=== PATIENT | female | born 1960 | race Caucasian/White ===

== ENCOUNTER → 2017-03-29 | Outpatient (CLI) | payer BC ==
[~2017-03-29] MED LIST: FLAGYL500 MG PO; HYDROCODON-ACE1 EAC5 PO; LEVAQUIN 500 M500 M2 PO; LORTAB 10-3251 EACH PO; ONDANSETRON HCL4 M2 PO; WELLBUTRIN XL150 MG PO
[2017-03-29 08:04] LABS: BASOPHILS 0.4 % (0.0-2.0); EOSINOPHILS 1.3 % (0.0-3.0); HEMATOCRIT 44.4 % (37.0-47.0); HEMOGLOBIN 15.3 gm/dL (12.0-15.0); LYMPHOCYTES 26.7 % (24.0-44.0); MCHC 34.5 g/dL (28.0-37.0); MCV 89.7 fL (80.0-100.0); MONOCYTES 5.3 % (1.0-8.0); PLATELET COUNT 239 thou/uL (150-400); POLYS 66.3 % (36.0-66.0); RBC 4.95 mil/uL (4.20-5.00); RDW 14.1 % (10.5-14.5); WBC 10.6 thou/uL (4.0-11.0)
[2017-03-29 08:07] LABS: MANUAL DIFF NO
[2017-03-29 08:10] LABS: CALCIUM 9.3 mg/dL (8.5-10.1); CREATININE 0.6 mg/dL (0.6-1.0); POTASSIUM 4.1 mmol/L (3.5-5.1)
== END ==
LOC: CAT 06:46
PROVIDERS: Surgery
DX: Z09 Encounter for follow-up examination after completed treatment for conditions other than malignant neoplasm (principal); K57.30 Diverticulosis of large intestine without perforation or abscess without bleeding

== ENCOUNTER 2017-05-18 05:41 | Inpatient (IN) | payer BC ==
[~2017-05-18] VITALS: Ht 157.5 cm; Wt 66.7 kg
--- NOTE | ~2017-05-18 | O ---
[facility] [place] [address] OPERATIVE REPORT Name: CAPRI ROUSSEAU Room #: 416-P [facility] M.R.#: [id number] Admission: 05/18/17 Attend Phys: Ronny Gaytan MD, F Discharge: Date of : 62 Report #: [id number] THIS REPORT FOR: //name// CC: Lewis Joneson Ronny Gaytan DATE OF SERVICE: 05/18/2017 SURGEON: Ronny Gaytan MD ORNAMENTAL IRONWORKER: Juan Carlos Lowery DO PREOPERATIVE DIAGNOSIS: History of severe acute diverticulitis, status post Celia's procedure. POSTOPERATIVE DIAGNOSES: 1. History of severe acute diverticulitis, status post Celia's procedure. 2. Extensive intra-abdominal adhesions. 3. Incisional ventral hernias (parastomal and recurrent at the midline). PROCEDURES: 1. Laparoscopic converted to open colostomy reversal. 2. Segmental small-bowel resection. 3. Extensive laparoscopic and open lysis of adhesions lasting 173 minutes. 4. Repair of incarcerated incisional ventral hernias times 2. 5. Placement of Prevena topical wound VAC. 6. This is a modifier 22 operation based on the extensive amount of intra-abdominal adhesions present and adhesions in the pelvis, which ultimately required conversion to an open procedure. Passage of the dilator and stapler rectally was quite difficult. ANESTHESIA: General endotracheal anesthesia and local anesthetic. ESTIMATED BLOOD LOSS: 200 mL. SPECIMENS: 1. Sigmoid colon. 2. Segment of distal jejunum. COMPLICATIONS: None appreciated. INDICATIONS FOR PROCEDURE: This is a 56-year-old female patient who underwent a Celia's procedure on 09/01/2016. She required a segmental small-bowel resection as well as repair of an incisional ventral hernia at that time. She was planned to have a laparoscopic sigmoid colectomy and was found to have adhesions and an abscess posterior to the urinary bladder and for this reason [address] [address] OPERATIVE REPORT Name: CAPRI ROUSSEAU Room #: 416-P REG [facility]#: [id number] Admission: 05/18/17 Attend Phys: Ronny Gaytan MD, F Discharge: Date of : 62 Report #: [id number] she required a Celia's procedure. She presents now for laparoscopic colostomy reversal. OPERATIVE FINDINGS: Upon entrance into the abdominal cavity laparoscopically, the patient had significant adhesions. The entire omentum was plastered to the anterior abdominal wall and this required takedown. There were also adhesions from the small-bowel to the anterior abdominal wall as well as interloop adhesions and adhesions from the colon to the anterior abdominal wall. After carefully taking these down, a recurrent incisional ventral hernia was seen at the midline near the umbilicus. In addition to this, a significant parastomal hernia was visualized containing omental fat. There was good length on the segment of colon leading up to the stoma that did not require mobilization of the splenic flexure. When attempting to dilate the rectum, the dilator could not be passed despite multiple attempts and finger dilatation. Decision was made to convert to an open procedure to further take down the pelvic adhesions and straighten the rectum to allow for stapling. A 29-mm EEA stapler was ultimately used for the anastomosis. There was no evidence for anastomotic leak on leak test whereby the anastomosis was submerged and pressure was held proximal to the anastomosis while air was insufflated distally. No bubbles were seen emanating from the anastomosis through the fluid. Due to the significant adhesions from the small-bowel to the pelvis, after taking down these adhesions, there were serosal injuries that were felt to be at risk for fistulization. The loop of bowel involved was distal jejunum. This was resected and the anastomosis was palpably patent. Both anastomoses were without tension. No other significant intraabdominal pathology was identified. At the conclusion of the operation, sponge, needle, and instrument counts were correct. DESCRIPTION OF PROCEDURE IN DETAIL: After the benefits and risks of the procedure were explained to the patient, which include, but are not limited to risks of bleeding, infection, possible conversion to an open procedure, postoperative pain, and postoperative expectations, informed consent was obtained. The patient was identified in the preoperative holding area. She was given IV antibiotics as documented in the chart in line with the SCIP metrics. The patient was then taken to the operating room and she was placed in the supine position. SCDs were placed on the patient's bilateral lower extremities and pneumatic compression was initiated. The patient was then given IV sedation and she was intubated without incident. She was placed in the low lying dorsal lithotomy position in [facility]. The patient's abdomen was prepped and draped in the standard sterile fashion. A time-out was performed to identify the correct patient and procedure. Local anesthetic was then infiltrated into the skin and subcutaneous tissue in the right subcostal area where a small transverse incision was made with a #15 blade scalpel. A 5-mm Visiport was placed with some difficulty and not clearly intraperitoneally. This approach was abandoned and I chose to insufflate the abdomen through a Veress needle. In the left upper quadrant of the abdomen, a [facility] [address] [place] [address] OPERATIVE REPORT Name: CAPRI ROUSSEAU [id number] Admission: 05/18/17 Attend Phys: Ronny Gaytan MD, F Discharge: Date of : 62 Report #: [id number] small incision was made after local anesthetic was infiltrated and a Veress needle was placed with two clicks and a positive drop test. The abdominal cavity was then insufflated with carbon dioxide. The right upper quadrant port was then placed intraperitoneally. An additional 5-mm port was placed in the right lower quadrant through a small transverse incision after local anesthetic was infiltrated into the skin and subcutaneous tissue and an appropriately sized incision was made. This was used to take down adhesions and cleared enough space to place a port in the left upper quadrant of the abdomen. This was placed through the same incision as that was used for placement of Veress needle. The port was placed under direct visualization. Extensive laparoscopic lysis of adhesions was then undertaken to dissect the omentum, small-bowel and colon off of the anterior abdominal wall. After doing so, the stoma was clearly identified. The parastomal hernia was clearly seen as was the recurrent incisional ventral hernia at the midline. Incarcerated omentum was dissected out of both defects. Attention was then turned to the pelvis. Small-bowel adhesions were present in the pelvis that were difficult to dissect free. The patient was placed in the steep Trendelenburg position and adhesiolysis was undertaken. Small-bowel loops remained somewhat adherent and unable to be dissected free out of the pelvis. Dissection was undertaken as much as possible. Further adhesions in the pelvis precluded passage of the dilators transanally. Finger dilatation was undertaken first. Despite this, there appeared to be a stricture and attempts to straighten the rectum laparoscopically were unsuccessful. The sutures on the rectal stump were able to be identified. Decision was made to convert to an open procedure. A sharp #10 blade scalpel was used to make a vertical midline incision through the old incision around the umbilicus on the right. Dissection was carried through the subcutaneous tissue down to the fascia. The fascia was then opened along the length of the incision. The Bookwalter retractor was placed. The small-bowel adhesions within the pelvis were further taken down and the small-bowel was run from the ileocecal valve to ligament of Treitz. All adhesions were carefully taken down with electrocautery and sharp dissection. The rectum was then freed with careful dissection and from below, after multiple attempts, the dilator was able to be passed up to an area that was just distal to the rectal stump staple line. The dilator could not be passed beyond this point. A 29-mm dilator had been used as well. The colostomy was taken down. An elliptical incision was made around the stoma and the tissue was divided with electrocautery to completely free the end descending colostomy. The stoma was stapled off. It had been pursestring suture closed prior to prepping the patient earlier. This was stapled off. An auto-pursestring device was then placed and the excess tissue was trimmed away. The tails of the pursestring suture were then tagged and the colon was triangulated with Allis clamps. The 25 and 28-mm dilator were used to sequentially dilate the descending colon. A medium sized 29-mm EEA stapler was chosen for the anastomosis. The anvil was placed within the lumen and the [address] [address] OPERATIVE REPORT Name: CAPRI ROUSSEAU Room #: 416-P [facility] M.R.#: [id number] Admission: 05/18/17 Attend Phys: Ronny Gaytan MD, F Discharge: Date of : 62 Report #: [id number] pursestring suture was tied while sequentially releasing the Allis clamps. The descending colon reached the pelvis without tension. I did dissect up along the white line of [place]oldt with electrocautery close to the splenic flexure. There appeared to be enough mobilization after doing so to create the anastomosis in a tension-free fashion. The 29-mm stapler was then advanced into the rectum and brought as far proximally as possible. The spike was advanced through the rectal wall. The anvil was connected to the spike and the stapler was tightened and fired ensuring that the mesentery of the descending colon was not twisted. The stapler was then opened and removed. A leak test was then performed with findings as noted above. The bowel was clamped off proximal to the anastomosis and using the rigid proctoscope, air was insufflated into the rectum. No air bubbles were seen emanating through the fluid from the anastomosis. There was a slight serosal injury anteriorly and this was sutured with interrupted 3-0 PDS sutures. The anastomosis itself did not require reinforcement. A 10 mL of Tisseel was applied around the anastomosis to further prevent leakage. The small-bowel resection was undertaken next. The bowel was run once again and carefully inspected. The segment of distal jejunum was resected whereby small windows were made in the mesentery proximal and distal to the area of involvement. A blue load SEE stapler was used to staple and divide the bowel. The antimesenteric corners of the bowel were then aligned and the antimesenteric staple line corners were excised. A blue load 75-mm SEE stapler was then passed into each limb of the bowel. The stapler was connected and fired on the antimesenteric surface to create a [id number] functional end-to-end anastomosis. The common enterotomy was then approximated with Allis clamps and a blue load 60-mm TX stapler was used to staple off the common entero-enterotomy. The excess tissue was excised. The TX stapler was removed. A 3-0 PDS suture was placed at the crotch of the anastomosis to reinforce it as an anti-tension suture. The mesenteric window was closed with a running 3-0 PDS suture as well. Interrupted 3-0 PDS Lembert sutures were used to imbricate and further protect the common entero-enterotomy staple line. The anastomosis was palpably patent. No other significant intra-abdominal pathology was identified. After ensuring that the sponge, needle and instrument counts were correct, the parastomal hernia (incisional ventral hernia) was closed in layers. A #1 PDS was used to close the defect internally. The anterior rectus sheath was closed transversely from the anterior surface in a running fashion. The wound was then irrigated and packed until later closed. All laparoscopic ports had been removed at this point. The Bookwalter retractor was removed as well. The abdominal cavity was irrigated and suctioned and return of all drainage ran clear. The midline abdominal wall was then closed with a running looped #1 PDS suture. Care was taken to ensure that there was no tissue incorporated into the closure prior to tying the suture. The wound was then irrigated. [place] were used for skin closure along the midline as well as at the stoma site and at each of the laparoscopic sites. The skin was then cleansed and dried. The Prevena topical wound VAC was then applied to the midline staple line. A good seal was present. The patient tolerated the procedure well. She was awakened, [address] [address] OPERATIVE REPORT Name: CAPRI ROUSSEAU Room #: 416-P [facility] M.R.#: [id number] Admission: 05/18/17 Attend Phys: Ronny Gaytan MD, F Discharge: Date of : 62 Report #: [id number] extubated, and taken to recovery room in stable condition with no apparent intraoperative complications. <ELECTRONICALLY SIGNED> By: Ronny Gaytan MD, FACS 05/19/17 1814 [id number] Ronny Gaytan MD, FACS /nt
[~2017-05-18 05:41] MED LIST changes: +CALCIUM 600 +1 EAC1 PO; +MULTIVITAMINS1 EAC7 PO; +VITAMIN D3400 UNIT PO
[2017-05-18 07:58] VITALS: BP 110/70
[2017-05-18 16:15] VITALS: BP 122/77
[2017-05-18 16:45] VITALS: BP 137/81
[2017-05-18 17:13] VITALS: BP 138/83
[2017-05-18 17:45] VITALS: BP 148/87
[2017-05-18 20:00] VITALS: BP 148/80
[2017-05-19 04:00] VITALS: BP 96/58
[2017-05-19 04:01] LABS: CALCIUM 7.9 mg/dL (8.5-10.1); CREATININE 0.7 mg/dL (0.6-1.0); POTASSIUM 4.1 mmol/L (3.5-5.1)
[2017-05-19 04:20] LABS: HEMATOCRIT 38.5 % (37.0-47.0); HEMOGLOBIN 12.8 gm/dL (12.0-15.0); MCH 30.3 pg (26.0-34.0); MCHC 33.3 g/dL (28.0-37.0); MCV 91.1 fL (80.0-100.0); PLATELET COUNT 217 thou/uL (150-400); RBC 4.23 mil/uL (4.20-5.00); RDW 13.2 % (10.5-14.5); WBC 21.9 thou/uL (4.0-11.0)
[2017-05-19 04:21] LABS: MANUAL DIFF YES
[2017-05-19 04:37] LABS: ABSOLUTE NEUTROPHILS 18.8 thou/uL (1.4-8.2); TOTAL CELL COUNT 100
[2017-05-19 08:00] VITALS: BP 102/55
[2017-05-19 15:00] VITALS: BP 93/47
[2017-05-19 19:50] VITALS: BP 79/49
[2017-05-19 21:22] VITALS: BP 98/54
[2017-05-20 04:00] LABS: CALCIUM 8.2 mg/dL (8.5-10.1); CREATININE 0.5 mg/dL (0.6-1.0); POTASSIUM 3.5 mmol/L (3.5-5.1)
[2017-05-20 04:16] LABS: ABSOLUTE NEUTROPHILS 10.6 thou/uL (1.4-8.2); BASOPHILS 0.4 % (0.0-2.0); EOSINOPHILS 1.5 % (0.0-3.0); LYMPHOCYTES 13.2 % (24.0-44.0); MCH 32.3 pg (26.0-34.0); MCHC 35.4 g/dL (28.0-37.0); MCV 91.1 fL (80.0-100.0); PLATELET COUNT 176 thou/uL (150-400); POLYS 79.9 % (36.0-66.0); RDW 12.8 % (10.5-14.5); WBC 13.3 thou/uL (4.0-11.0)
[2017-05-20 04:17] LABS: HEMOGLOBIN 10.6 gm/dL (12.0-15.0); MANUAL DIFF NO
[2017-05-20 06:06] VITALS: BP 82/33
[2017-05-20 07:10] VITALS: BP 96/60
[2017-05-20 16:02] VITALS: BP 101/46
[2017-05-20 19:39] VITALS: BP 109/61
[2017-05-21 03:27] VITALS: BP 118/60
[2017-05-21 06:10] LABS: CALCIUM 8.2 mg/dL (8.5-10.1); CREATININE 0.4 mg/dL (0.6-1.0); POTASSIUM 3.3 mmol/L (3.5-5.1)
[2017-05-21 06:55] VITALS: BP 146/85
[2017-05-21 08:00] VITALS: BP 117/64
[2017-05-21 17:06] VITALS: BP 113/55
[2017-05-21 19:13] VITALS: BP 111/60
[2017-05-22 05:36] VITALS: BP 100/56
[2017-05-22 09:09] VITALS: BP 122/69
[2017-05-22 17:36] VITALS: BP 125/58
[2017-05-23 04:06] VITALS: BP 119/60
[2017-05-23 17:50] VITALS: BP 118/67
[2017-05-23 20:00] VITALS: BP 120/55
[2017-05-24] VITALS: BP 123/48
[2017-05-24 04:00] VITALS: BP 130/68
[2017-05-24 07:17] VITALS: BP 122/64
[2017-05-24 14:18] LABS: HEMATOCRIT 32.5 % (37.0-47.0); HEMOGLOBIN 11.1 gm/dL (12.0-15.0); MCH 30.5 pg (26.0-34.0); MCHC 34.2 g/dL (28.0-37.0); MCV 89.2 fL (80.0-100.0); RBC 3.64 mil/uL (4.20-5.00); RDW 12.6 % (10.5-14.5); WBC 9.8 thou/uL (4.0-11.0)
[2017-05-24 14:26] LABS: CALCIUM 8.4 mg/dL (8.5-10.1); CREATININE 0.5 mg/dL (0.6-1.0)
[2017-05-24 14:28] LABS: POTASSIUM 2.9 mmol/L (3.5-5.1)
[2017-05-24 16:00] VITALS: BP 126/63
[2017-05-24 20:00] VITALS: BP 130/64
[2017-05-25 04:50] VITALS: BP 132/60
[2017-05-25 07:52] LABS: POTASSIUM 3.5 mmol/L (3.5-5.1)
[2017-05-25 08:26] LABS: CALCIUM 8.8 mg/dL (8.5-10.1); CREATININE 0.4 mg/dL (0.6-1.0); POTASSIUM 3.5 mmol/L (3.5-5.1)
[2017-05-25 08:57] VITALS: BP 134/67
[2017-05-25 21:17] VITALS: BP 139/67
[2017-05-26 03:33] VITALS: BP 128/63
[2017-05-26 08:27] VITALS: BP 126/91
[2017-05-26] MEDS ORDERED: HYDROCODON-ACE1 EAC7 PO (09:27)
[2017-05-26 09:56] VITALS: BP 126/91
== END 2017-05-26 12:45 | disposition home or self-care (01) | DRG 328 ==
LOC: OR 05:41 → TBA 05:41 → OR 09:41 → 4N 16:13 → OR 16:14 → 4N 16:14
PROVIDERS: Family Medicine; Surgery
PROC: 0DQB4ZZ Repair Ileum, Percutaneous Endoscopic Approach (ICD-10-PCS; principal; 2017-05-18)
PROC: 0WQF0ZZ Repair Abdominal Wall, Open Approach (ICD-10-PCS; principal; 2017-05-18)
PROC: 0WJF4ZZ Inspection of Abdominal Wall, Percutaneous Endoscopic Approach (ICD-10-PCS; principal; 2017-05-18)
PROC: 0DBN0ZZ Excision of Sigmoid Colon, Open Approach (ICD-10-PCS; principal; 2017-05-18)
PROC: 0DT80ZZ Resection of Small Intestine, Open Approach (ICD-10-PCS; principal; 2017-05-18)
PROC: 0DN60ZZ Release Stomach, Open Approach (ICD-10-PCS; principal; 2017-05-18)
DX: K57.92 Diverticulitis of intestine, part unspecified, without perforation or abscess without bleeding (principal); E87.6 Hypokalemia; K66.0 Peritoneal adhesions (postprocedural) (postinfection); F17.210 Nicotine dependence, cigarettes, uncomplicated; K43.2 Incisional hernia without obstruction or gangrene; Z79.899 Other long term (current) drug therapy; Z88.0 Allergy status to penicillin; Z91.048 Other nonmedicinal substance allergy status; Z90.49 Acquired absence of other specified parts of digestive tract; Z90.710 Acquired absence of both cervix and uterus; Z80.9 Family history of malignant neoplasm, unspecified; Z83.3 Family history of diabetes mellitus; Z82.49 Family history of ischemic heart disease and other diseases of the circulatory system; Z83.6 Family history of other diseases of the respiratory system
CPT/HCPCS: 10790; 50010; 50101; 50249; 50386; 50455; 50555; 50558; 50804; 50953; 50962; 51398; 51412; 51437; 51489; 51712; 52265; 53307; 53310; 54022; 54118; 56462; 56525; 56526; 56527; 56530; 56753; 57092; 62110; 62900; 70005

== ENCOUNTER → 2017-07-11 | Outpatient (CLI) | payer BC ==
[~2017-07-11] MED LIST changes: +HYDROCODON-ACE1 EAC7 PO
== END ==
LOC: CAT 07:48
DX: R10.9 Unspecified abdominal pain (principal); Z98.890 Other specified postprocedural states; Z87.19 Personal history of other diseases of the digestive system

== ENCOUNTER → 2020-04-17 | Outpatient (CLI) | payer OTHER | LOC: RAD 09:14 | PROVIDERS: ATTEND Internal Medicine | DX: R06.00 Dyspnea, unspecified (principal); R06.02 Shortness of breath; Z90.49 Acquired absence of other specified parts of digestive tract ==